=== PATIENT | female | born 1970 | race Caucasian/White ===

== ENCOUNTER 2022-12-15 10:04 | Outpatient (REF) | payer MEDICARE, BC, SELFPAY ==
[2022-12-15 19:32] LABS: Ferritin 173 ng/mL (8-252); Vitamin B12 784 pg/mL (193-986)
[2022-12-20 10:13] LABS: Insulin 44.5 uIU/mL (<29.0)
== END 2022-12-15 10:05 | disposition home or self-care (01) ==
LOC: LBN 10:04
PROVIDERS: PCP Nurse Practitioner Family; Visit Provider Surgery
DX: K75.81 Nonalcoholic steatohepatitis (NASH) (principal); E66.01 Morbid (severe) obesity due to excess calories; R73.03 Prediabetes; Z68.39 Body mass index [BMI] 39.0-39.9, adult
CPT/HCPCS: 82607; 82728; 83525

== ENCOUNTER 2022-12-15 10:13 | Outpatient (REF) | payer MEDICARE, BC, SELFPAY ==
[2022-12-15 18:45] LABS: Abs Immature Grans 0.04 10^3/uL (0.0-0.06); Absolute Basophil Count 0.04 10^3/uL (0.0-0.2); Absolute Eosinophil Count 0.13 10^3/uL (0.0-0.7); Absolute Lymphocyte Count 2.09 10^3/uL (1.2-3.4); Absolute Monocyte Count 0.56 10^3/uL (0.1-0.8); Absolute Neutrophil Count 2.94 10^3/uL (1.2-6.7); Basophils % 0.7; Eosinophils % 2.2; HCT 40.9 % (36.0-46.0); HGB 13.8 g/dL (11.2-15.7); Immature Grans % 0.7; MCH 29.6 pg (27.0-33.0); MCHC 33.7 % (32.0-36.0); MCV 88 fL (80-95); MPV 11.4 fL (8.0-11.0); Monocytes % 9.7; Neutrophils % 50.7; Platelet Count 232 10^3/uL (130-400); RBC 4.67 10^6/uL (3.93-5.22); RDW 13.2 % (11.7-14.6); RDW-SD 42.2 fL
[2022-12-15 19:05] LABS: Hemoglobin A1C 5.8 % (<5.7)
[2022-12-15 19:18] LABS: ALT 56 U/L (14-59); AST 25 U/L (15-37); Albumin 3.8 g/dL (3.4-5.0); Alkaline Phosphatase 122 U/L (46-116); Anion Gap 10.6 mmol/L (3-11); BUN 16 mg/dL (7-18); Bilirubin, Total 0.4 mg/dL (0.2-1.0); CO2 25.4 mmol/L (21.0-32.0); Calcium 9.1 mg/dL (8.5-10.1); Calculated LDL 92 mg/dL (<100); Chloride 105 mmol/L (98-107); Cholesterol 195 mg/dL (<200); Estimated GFR 67.36 (mL/min/1.73m2); Glucose 123 mg/dL (74-106); HDL Cholesterol 42 mg/dL (40-60); Potassium 4.2 mmol/L (3.5-5.1); Sodium 141 mmol/L (136-145); Triglyceride 305 mg/dL (<150)
== END 2022-12-15 10:14 | disposition home or self-care (01) ==
LOC: NCHCN 10:13
PROVIDERS: PCP Nurse Practitioner Family; Visit Provider Nurse Practitioner Family
DX: Z00.00 Encounter for general adult medical examination without abnormal findings (principal); R73.03 Prediabetes; K76.0 Fatty (change of) liver, not elsewhere classified; E55.9 Vitamin D deficiency, unspecified
CPT/HCPCS: 80053; 80061; 82306; 83036; 84443; 85025

== ENCOUNTER 2023-01-10 09:48 | Outpatient (CLI) | payer MEDICARE, BC, SELFPAY | END 2023-01-10 09:49 | disposition home or self-care (01) | PROVIDERS: PCP Nurse Practitioner Family; Visit Provider Nurse Practitioner Family | DX: R00.2 Palpitations (principal) | CPT/HCPCS: 93246 ==

== ENCOUNTER 2023-02-14 07:55 | Outpatient (CLI) | payer MEDICARE, BC, SELFPAY ==
--- NOTE | 2023-02-14 08:58 | W.CARDEVENT ---
Date of service: 02/14/23 Time of Service: 08:58 Cardiac Event Recorder Referring Provider:: Freda Owusu Indications:: Palpitations Cardiac Event Note: This is a cardiac event monitor ordered for palpitations. Patient was monitored for 10 days 22 hours Predominant rhythm was sinus with an average heart rate of 84. Minimum was 55, maximum 147 There were occasional ventricular ectopic beats There were very rare atrial premature beats A total of 4 self-limited atrial runs occurred. The longest of these was 9 beats in duration There was no atrial fibrillation, no high-grade AV block, no pauses greater than 3 seconds No patient symptoms were reported
== END 2023-02-14 07:56 | disposition home or self-care (01) ==
LOC: CARDOPNVT 07:55
PROVIDERS: PCP Nurse Practitioner Family; Visit Provider Internal Medicine Cardiovascular Disease
DX: R00.2 Palpitations (principal); I49.1 Atrial premature depolarization; I49.3 Ventricular premature depolarization
CPT/HCPCS: 93248

== ENCOUNTER → 2023-06-21 13:09 | Outpatient (CLI) | payer MEDICARE, BC, SELFPAY ==
--- NOTE | 2023-06-21 12:30 | DI.RAD_ITS ---
Exam(s) XR CHEST 2V PA LATERAL EXAM: XR CHEST 2V PA LATERAL CLINICAL HISTORY: [id number]. TECHNIQUE: 2D digital imaging was performed. COMPARISON: No exams were available for comparison FINDINGS: 2 views: Heart size is normal. The mediastinum is not widened. Lungs are clear. No infiltrates nor pleural effusions. IMPRESSION: No acute pulmonary findings. DATA REPOSITORY: RADIATION DOSE DELIVERED:
--- OUTSIDE RECORDS SUMMARY | 2023-06-21 13:10 | XMS_ITS | Continuity of Care Document ---
Author Name Unknown Organization [facility] Address [address] [place] [id number] Encounter LTTL_LA FIN NBR [id number] Date(s): 07/13/22 - 07/13/[address] [address]- Encounter Diagnosis Flank pain(Discharge Diagnosis) - 07/13/22 Discharge Disposition: Home f/u External Provider Attending Physician: Moy Haynes MD Admitting Physician: Moy Haynes MD Allergies, Adverse Reactions, Alerts Substance Reaction Severity Status prochlorperazine Unknown Active divalproex sodium Unknown Active topiramate Unknown Active ceFAZolin Unknown Active OLANZapine Unknown Active SUMAtriptan Succinate Unknown Active Functional Status 07/13/22 Family Member Travel History No recent t ravel Recent Travel History No recent travel Other exposure to Infectious Disease Non e Medications cyclobenzaprine 5 mg oral tablet 5 mg = 1 tab, Oral, TID, PRN, # 15 tab, 0 Refill(s), Pharmacy: [facility] #[id number], 160, cm, 07/13/22 10:40:00 EST, Height/Length Dosing, 99, kg, 07/13/22 10:40:00 EST, Weight Dosing Start Date: 07/13/22 Status: Ordered desvenlafaxine 0 Refill(s) Start Date: 07/13/22 Status: Ordered simvastatin 0 Refill(s) Start Date: 07/13/22 Status: Ordered Results Laboratory List Name Date CBC w/ Diff 07/13/22 Comprehensive Metabolic Panel (CMP) 07/13 Test Urine Qual 07/13/22 Urinalysis with Microscopic if Indicated 07/13/22 Automated Diff 07/13/22 Most recent to oldest [Reference Range]: 1 WBC [4.8-10.8 K/mcL] 6.3 K/mcL (07/13/22 11:00 AM) RBC [4.20-6.10 Million/mcL] 4.79 Million /mcL (07/13/22 11:00 AM) Neutro Auto [42.2-75.2 %] 56.9 % (07/13/22 11:00 AM) Lymph Auto [20.5-51.1 %] 32.9 % (07/13/22 11:00 AM) Jay Auto [1.7-9.3 %] 7.8 % (07/13/22 11:00 AM) Basophil Auto [0.0-0.8 %] 0.5 % (07/13/22 11:00 AM) BUN [8-26 mg/dL] 13 mg/dL (07/13/22 11:00 AM) UA Color [Yellow] Yellow (07/13/22:00 AM) Glucose Level [74-106 mg/dL] 122 mg/dL *HI* (07/13/22:00 AM) Potassium Level [3.5-5.1 mmol/L] 3.8 mmo l/L (07/13/22 11:00 AM) Baso Absolute [0.0-0.2 K/mcL] 0.0 K/mcL (07/13/22 11:00 AM) MCV [80.0-99.0 fL] 86.8 fL (07/13/22 11:00 AM) UA Urobilinogen [0.2] 0.2 (07/13/22 11:00 AM) UA Bili [Negative] Negative (07/13/22 11:00 AM) UA Ketones [Negative] Negative (07/13/22 11:00 AM) AST [15-41 IntlUnit/L] 27 IntlUnit/L (07/13/22 11:00 AM) ALT [14-54 IntlUnit/L] 35 IntlUnit/L (07/13/22 11:00 AM) MCHC [32.0-36.0 g/dL] 34.1 g/dL (07/13/22 11:00 AM) Osmolality [275-295 mOsm/kg] 277 mOsm/kg (07/13/22 11:00 AM) Sodium Level [134-143 mmol/L] 138 mmol/L (07/13/22 11:00 AM) UA Leuk Est [Negative] Negative (07/13/22 1100 AM) Lymph Absolute [1.2-3.4 K/mcL] 2.1 K/mcL (07/13/22 11:00 AM) UA Nitrite [Negative] Negative (07/13/22 1100 AM) UA Glucose [Negative] 100 *ABN* (07/13/2200 AM) Hct [37.0-52.0 %] 41.6 % (07/13/22:00 AM) Calcium Level [8.9-10.3 mg/dL] 9.4 mg/dL (07/13/22:00 AM) Jay Absolute [0.1-0.6 K/mcL] 0.5 K/mcL (07/13/22:00 AM) Albumin Level [3.5-5.0 g/dL] 4.3 g/dL (07/13/2200 AM) Protein Total [6.5-8.1 g/dL] 7.6 g/dL (07/13/22 11:00 AM) UA Protein [Negative] Negative (07/13/22 11:00 AM) MCH [27.0-31.0 pg] 29.6 pg (07/13/22 11:00 AM) Neutro Absolute [1.4-6.5 K/mcL] 3.6 K/mc L (07/13/22 11:00 AM) Bilirubin Total [0.2-1.2 mg/dL] 0.4 mg/d L (07/13/22 11:00 AM) Hgb [12.0-18.0 g/dL] 14.2 g/dL (07/13/22 11:00 AM) Alk Phos [38-130 IntlUnit/L] 111 IntlUni t/L (07/13/22 11:00 AM) UA Blood [Negative] Negative (07/13/22 11:00 AM) MPV [7.4-10.4 fL] 10.3 fL (07/13/22 11:00 AM) UA Spec Grav 1.015 *NA* (07/13/22 11:00 AM) Platelets [130-400 K/mcL] 224 K/mcL (07/13/22 11:00 AM) CO2 [22-32 mmol/L] 25 mmol/L (07/13/22 11:00 AM) Eos Absolute [0.0-0.2 K/mcL] 0.1 K/mcL (07/13/22 11:00 AM) UA pH 6.50 *NA* (07/13/22 11:00 AM) eGFR Non-AA 69 *NA* (07/13/22 11:00 AM) eGFR AA 69 *NA* (07/13/22 11:00 AM) UA Appear [Clear] Clear (07/13/22 11:00 AM) Chloride Level [98-111 mmol/L] 105 mmol/ L (07/13/22 11:00 AM) RDW-CV [11.5-14.5 %] 12.8 % (07/13/22 11:00 AM) A/G Ratio 1.3 *NA* (07/13/22 11:00 AM) BUN/Creat Ratio [8.0-20.0] 13.3 (07/13/22 11:00 AM) Globulin 3.3 *NA* (07/13/22 11:00 AM) Imm Gran Absolute 0.03 *NA* (07/13/22 11:00 AM) Imm Gran Auto [0.0-0.5 %] 0.5 % (07/13/22 11:00 AM) Urine Srce Clean Catch (07/13/22 11:00 AM) Creatinine Level [0.44-1.00 mg/dL] 0.98 mg/dL (07/13/22 11:00 AM) Anion Gap [3.0-12.0] 8.0 (07/13/22 11:00 AM) Eos, Auto [0.00-3.00 %] 1.40 % (07/13/22 11:00 AM) U hCG Ql [Negative] Negative (07/13/22 11:00 AM) Radiology Reports * Exam Date Time Procedure Performing Provider Status 07/13/22 11:[address] Abdomen and Pelvi s w/o Contrast Corry Jurdao; Ajit (Verified) Notes: (CT Abdomen and Pelvis w/o Contrast) Reason For Exam: left flank pain ?stone CT Abdomen and Pelvis w/o Contrast EXAM DESCRIPTION: CT Abdomen and Pelvis w/o Contrast N/A INDICATION: LEFT FLANK PAIN ?STONE TECHNIQUE: All CT scans at this facility use at least one of these dose optimization techniques: Automated exposure control; mA and/or kV adjustment per patient size (includes targeted exams where dose is matched to clinical indication); or iterative reconstruction. Technique: Axial CT images of the abdomen/pelvis without IV contrast administration COMPARISON: 12/11/2013 FINDINGS: Visualized portions of the liver, spleen, pancreas and adrenal glands demonstrate a normal unenhanced CT appearance. No calcified gallstones in the gallbladder. Small nonobstructing bilateral renal calculi. No hydronephrosis or obstructing ureteral calculus on either side Normal caliber abdominal aorta No retroperitoneal adenopathy in the abdomen or pelvis. No pelvic mass identified with apparent prior hysterectomy No bowel dilatation to suggest obstruction or ileus. No free intraperitoneal air, ascites or inflammatory changes. Normal appendix. Minimal subsegmental atelectasis or scarring in the lingula. Visualized lung bases are otherwise clear. No suspicious regional osseous lesions. IMPRESSION: No acute findings in the abdomen or pelvis No evidence of obstructing urinary tract calculus with small nonobstructing bilateral renal calculi Nonobstructive bowel pattern. No free air or inflammatory changes. JOB #: [id number] Final Signed by: Fabian Stevens MD Signed (Electronic Signature): 07/13/2022 11:28 am Vital Signs Most recent to oldest [Reference Range]: 1 Temperature Tympanic [36.6-37.9 Deg C] 3 6.8 Deg C (07/13/22 10:33 AM) Peripheral Pulse Rate [60-100 bpm] 82 bp m (07/13/22 10:33 AM) Respiratory Rate [12-24 br/min] 16 br/mi n (07/13/22 10:33 AM) Blood Pressure [90-140/60-90 mmHg] 126/7 9mmHg (07/13/22 10:33 AM) Weight Dosing 99.00 kg (07/13/22 10:40 AM) Weight Estimated 99.00 kg (07/13/22 10:33 AM) Height/Length Dosing 160.000 cm (07/13/22 10:40 AM) Height/Length Estimated 160.000 cm (07/13/22 10:33 AM) Social History Social History Type Response Tobacco Never tobacco user T obacco Use:. Sex Hospital Discharge Instructions Patient Education 07/13/2022 11:07:09 Flank Pain, Adult Flank Pain, Adult Flank pain is pain that is located on the side of the body between the upper abdomen and the spine.This area is called the flank. The pain may occur over a short period of time (acute), or it may belong-term or recurring (chronic). It may be mild or severe. Flank pain can be caused by many things, including: ??? Muscle soreness or injury. ??? Kidney infection, kidney stones, or kidney disease. ??? Stress. ??? A disease of the spine (vertebral disk disease). ??? A lung infection (pneumonia). ??? Fluid around the lungs (pulmonary edema). ??? A skin rash caused by the chickenpox virus (shingles). ??? Tumors that affect the back of the abdomen. ??? Gallbladder disease. Follow these instructions at home: ??? Drink enough fluid to keep your urine pale yellow. ??? Rest as told by your health care provider. ??? Take [id number] and prescription medicines only as told by your health care provider. ??? Keep a journal to track what has caused your flank pain and what has made it feel better. ??? Keep all follow-up visits. This is important. Contact a health care provider if: ??? Your pain is not controlled with medicine. ??? You have new symptoms. ??? Your pain gets worse. ??? Your symptoms last longer than 2???3 days. ??? You have trouble urinating or you are urinating very frequently. Get help right away if: ??? You have trouble breathing or you are short of breath. ??? Your abdomen hurts or it is swollen or red. ??? You have nausea or vomiting. ??? You feel faint, or you faint. ??? You have blood in your urine. ??? You have flank pain and a fever. These symptoms may represent a serious problem that is an emergency. Do not wait to see if the symptoms will go away. Get medical help right away. Call your local emergency services (911 in the [place] Do not drive yourself to the hospital. Summary ??? Flank pain is pain that is located on the side of the body between the upper abdomen and the spine. ??? The pain may occur over a short period of time (acute), or it may be long- term or recurring (chronic). It may be mild or severe. ??? Flank pain can be caused by many things. ??? Contact your health care provider if your symptoms get worse or last longer than 2???3 days. This information is not intended to replace advice given to you by your health care provider. Make sure you discuss any questions you have with your health care provider. Document Revised: 08/31/2021 Document Reviewed: 08/31/2021 Elsevier Patient Education ?? 2021 [employer] Follow Up Care 07/13/2022 10:32:59 With:Follow up with primary care provider Address: When:1 to 2 weeks Discharge instructions * Event Display: Discharge Instructions Physician Emergency department Note * SUZY Laird: PERFORM Event Display: ED Note Physician Authored Date: [id number] SCOTTIE DUDLEY :1970 Age:51 years Sex:Female Visit Date:07/13/2022 Basic Information Time Seen: SUZY Laird / 07/13/2022 10:38 Chief Complaint patient presents with report of x1 week of left sided flank pain that is unresolved. reports 3-4 days of some blood in her urine. reports mild nausea. History Of Present Illness: Patient is a 51-year-old female presenting to the emergency department for left flank pain.?? For the last week has had left pain.?? Reports intermittent nausea.?? No vomiting.?? Reports hematuria.??No dysuria or urinary frequency or urgency.?? History of kidney stone many years ago, states that this feels similar.?? She did have to have lithotripsy to remove her last stone.?? She denies any fevers or chills.?? No constipation or diarrhea.?? No respiratory symptoms. Review of Systems: Constitutional:?No??fevers,?No??chills,?No??sweats Respiratory:?No??shortness of breath,?No??cough Cardiovascular:?No??Chest pain,?No??palpitations,?No??syncope Gastrointestinal:?Positive fornausea,?No??vomiting,?No??diarrhea,??PositiveAbdominal pain Genitourinary:?Positive for??hematuria Musculoskeletal:??No??back pain,??No??neck pain,??No??joint pain Integumentary:?No??rash Physical Exam Vitals & Measurements T:??36.8?C ??(Tympanic)?? HR:??82??(Peripheral)?? RR:??16?? BP:??126/79?? SpO2:??98%?? HT:??160.000??cm?? WT:??99.00??kg??(Estimated)?? Pain Score:??6?? O2 Therapy:??Room air?? GENERAL: Awake and alert. No acute distress ?? CARDIOVASCULAR: Regular rate and rhythm, no murmur no rub ?? LUNGS: No respiratory distress. Chest nontender. Normal breath sounds. No wheezing or crackles ?? ABDOMEN: Abdomen soft?? nondistended active bowel sounds. left flank tenderness ?? EXTREMITIES: ?? Nontender. normal range of motion. ?? NEUROLOGIC: Alert and oriented x4. ?? SKIN: Color normal. ??Warm dry intact. No Rash Procedure No Qualifying Data Assessment/Plan 1.??Flank pain??R10.9 No evidence of stone or infection on labs or CT. ??Possible passed stone versus??musculoskeletal??origin of pain. ??Was given Toradol and Zofran with minimal relief.?? She did drive herself to the emergency department. ??I will discharge her home with a prescription??for Flexeril to take to see if this provides better pain relief. ??Otherwise instructed to continue [id number] medications follow-up with primary care provider??if not better return to ER if any worsening or changes. ??She states understanding and agrees with above plan. Ordered: cyclobenzaprine 5 mg oral tablet, 5 mg = 1 tab, Oral, TID, PRN, # 15 tab, 0 Refill(s), Pharmacy: [facility] #[id number], 160, cm, 07/13/22 10:40:00 EST, Height/Length Dosing, 99, kg, 07/13/22 10:40:00 EST, Weight Dosing ?? Patient Education Flank Pain, Adult Follow Up With When Contact Information Follow up with primary care provider Within 1 to 2 weeks Additional Instructions: Medication Reconciliation New Prescription cyclobenzaprine (cyclobenzaprine 5 mg oral tablet)1 tab Oral (given by mouth) 3 times a day. PRN. Refills: 0. ?? Unchanged desvenlafaxine ?? simvastatin ?? Discontinued aspirin (aspirin 81 mg oral capsule)1 Capsules Oral (given by mouth) every day. do not exceed 48 capsules in 24 hours. Problem List/Past Medical History Ongoing No qualifying data Historical No qualifying data Medication Administration Given !-Zofran, 4 mg, IV Push Toradol, 30 mg, IV Allergies OLANZapine SUMAtriptan Succinate ceFAZolin divalproex sodium prochlorperazine topiramate Social History Alcohol Never Electronic Cigarette/Vaping Electronic Cigarette Use: Never. Substance Use Marijuana, 1-2 times per month Tobacco Never tobacco user Tobacco Use:. Diagnostic Results CT Abdomen and Pelvis w/o Contrast 07/13/2022 11:[address] Abdomen and Pelvis w/o Contrast ?? 07/13/22 11:28:23 EXAM DESCRIPTION: CT Abdomen and Pelvis w/o Contrast ?? N/A ?? INDICATION: LEFT FLANK PAIN ?STONE ?? TECHNIQUE: All CT scans at this facility use at least one of these dose optimization techniques: Automated exposure control; mA and/or kV adjustment per patient size (includes targeted exams where dose is matched to clinical indication); or iterative reconstruction. ?? Technique: Axial CT images of the abdomen/pelvis without IV contrast administration ?? COMPARISON: 12/11/2013 ?? FINDINGS: Visualized portions of the liver, spleen, pancreas and adrenal glands demonstrate a normal unenhanced CT appearance. ?? No calcified gallstones in the gallbladder. ?? Small nonobstructing bilateral renal calculi. No hydronephrosis or obstructing ureteral calculus on either side ?? Normal caliber abdominal aorta ?? No retroperitoneal adenopathy in the abdomen or pelvis. No pelvic mass identified with apparent prior hysterectomy ?? No bowel dilatation to suggest obstruction or ileus. No free intraperitoneal air, ascites or inflammatory changes. Normal appendix. ?? Minimal subsegmental atelectasis or scarring in the lingula. Visualized lung bases are otherwise clear. ?? No suspicious regional osseous lesions. ?? IMPRESSION: No acute findings in the abdomen or pelvis ?? No evidence of obstructing urinary tract calculus with small nonobstructing bilateral renal calculi ?? Nonobstructive bowel pattern. No free air or inflammatory changes. ? JOB #: [id number] Electronically Signed By: ?? Signed By: Fabian Stevens MD Lab Results CBC and Differential?? LATEST RESULTS?? WBC?? 07/13/22 11:00?? 6.3?? RBC?? 07/13/22 11:00?? 4.79?? Hgb?? 07/13/22 11:00?? 14.2?? Hct?? 07/13/22 11:00?? 41.6?? MCV?? 07/13/22 11:00?? 86.8?? MCH?? 07/13/22 11:00?? 29.6?? MCHC?? 07/13/22 11:00?? 34.1?? RDW-CV?? 07/13/22 11:00?? 12.8?? Platelets?? 07/13/22 11:00?? 224?? MPV?? 07/13/22 11:00?? 10.3?? Neutro Auto?? 07/13/22 11:00?? 56.9?? Lymph Auto?? 07/13/22 11:00?? 32.9?? Jay Auto?? 07/13/22 11:00?? 7.8?? Eos, Auto?? 07/13/22 11:00?? 1.40?? Basophil Auto?? 07/13/22 11:00?? 0.5?? Imm Gran Auto?? 07/13/22 11:00?? 0.5?? Neutro Absolute?? 07/13/22 11:00?? 3.6?? Lymph Absolute?? 07/13/22 11:00?? 2.1?? Jay Absolute?? 07/13/22 11:00?? 0.5?? Eos Absolute?? 07/13/22 11:00?? 0.1?? Baso Absolute?? 07/13/22 11:00?? 0.0?? Imm Gran Absolute?? 07/13/22 11:00?? 0.03? Routine Chemistry?? LATEST RESULTS?? Sodium Level?? 07/13/22 11:00?? 138?? Potassium Level?? 07/13/22 11:00?? 3.8?? Chloride Level?? 07/13/22 11:00?? 105?? CO2?? 07/13/22 11:00?? 25?? Alk Phos?? 07/13/22 11:00?? 111?? AST?? 07/13/22 11:00?? 27?? ALT?? 07/13/22 11:00?? 35?? BUN?? 07/13/22 11:00?? 13?? Glucose Level?? 07/13/22 11:00?? 122 ??High?? Creatinine Level?? 07/13/22 11:00?? 0.98?? BUN/Creat Ratio?? 07/13/22 11:00?? 13.3?? eGFR AA?? 07/13/22 11:00?? 69?? eGFR Non-AA?? 07/13/22 11:00?? 69?? Calcium Level?? 07/13/22 11:00?? 9.4?? Protein Total?? 07/13/22 11:00?? 7.6?? Albumin Level?? 07/13/22 11:00?? 4.3?? Globulin?? 07/13/22 11:00?? 3.3?? A/G Ratio?? 07/13/22 11:00?? 1.3?? Bilirubin Total?? 07/13/22 11:00?? 0.4?? Anion Gap?? 07/13/22 11:00?? 8.0?? Osmolality?? 07/13/22 11:00?? 277? Testing?? LATEST RESULTS?? U hCG Ql?? 07/13/22 11:00?? Negative? UA Macroscopic?? LATEST RESULTS?? Urine Srce?? 07/13/22 11:00?? Clean Catch?? UA Color?? 07/13/22 11:00?? Yellow?? UA Appear?? 07/13/22 11:00?? Clear?? UA Glucose?? 07/13/22 11:00?? 100 Abnormal?? UA Bili?? 07/13/22 11:00?? Negative?? UA Ketones?? 07/13/22 11:00?? Negative?? UA Spec Grav?? 07/13/22 11:00?? 1.015?? UA Blood?? 07/13/22 11:00?? Negative?? UA pH?? 07/13/22 11:00?? 6.50?? UA Protein?? 07/13/22 11:00?? Negative?? UA Urobilinogen?? 07/13/22 11:00?? 0.2?? UA Nitrite?? 07/13/22 11:00?? Negative?? UA Leuk Est?? 07/13/22 11:00?? Negative? Electronically Signed on 07/13/22 12:36 PM SUZY Laird Emergency department Discharge instructions * SUZY Laird: PERFORM Event Display: ED Discharge Information Authored Date: [id number] SCOTTIE DUDLEY :1970 Age:51 years Sex:Female Visit Date:07/13/2022 Discharge Instructions We would like to thank you for allowing us to assist you with your healthcare needs. The following includes patient education materials and information regarding your injury/illness. Diagnosis from Today's Visit Flank pain Discharge Vitals Temperature??(Tympanic) 98.2 ??F (36.8 ??C) Heart Rate??(Peripheral) 82 Respiratory Rate?? 16 Blood Pressure?? 126/79?? Height?? 62.99 in (160.000 cm) Weight??(Estimated) 218.30 lb (99.00 kg) Allergies OLANZapine SUMAtriptan Succinate ceFAZolin divalproex sodium prochlorperazine topiramate What to Do Next You Need to Schedule the Following Appointments Follow Up with??Follow up with primary care provider When:??Within 1 to 2 weeks You were treated today on an emergency basis; it may be house to contact your primary care provider to notify them of your visit today. You may have been referred to your regular doctor or a specialist, please follow up as instructed. If your condition worsens or you can't get in to see the doctor, contact the Emergency Department. Medications What How Much When Why Instructions Next Dose New cyclobenzaprine (cyclobenzaprine 5 mg oral tablet) 1 tab Oral (given by mouth) 3 times a day Flank pain PRN ?? Pickup at [facility] #[id number] Unchanged desvenlafaxine Unchanged simvastatin Pharmacy Information [facility] #[id number]: [address] [place] [phone] ?? What How Much When Comments Stop Taking aspirin (aspirin 81 mg oral capsule) 1 Capsules Oral (given by mouth) Every day do not exceed 48 capsules in 24 hours ?? Education Materials Flank Pain, Adult Flank pain is pain that is located on the side of the body between the upper abdomen and the spine.This area is called the flank. The pain may occur over a short period of time (acute), or it may belong-term or recurring (chronic). It may be mild or severe. Flank pain can be caused by many things, including: ? Muscle soreness or injury. ? Kidney infection, kidney stones, or kidney disease. ? Stress. ? A disease of the spine (vertebral disk disease). ? A lung infection (pneumonia). ? Fluid around the lungs (pulmonary edema). ? A skin rash caused by the chickenpox virus (shingles). ? Tumors that affect the back of the abdomen. ? Gallbladder disease. Follow these instructions at home: ? Drink enough fluid to keep your urine pale yellow. ? Rest as told by your health care provider. ? Take [id number] and prescription medicines only as told by your health care provider. ? Keep a journal to track what has caused your flank pain and what has made it feel better. ? Keep all follow-up visits. This is important. Contact a health care provider if: ? Your pain is not controlled with medicine. ? You have new symptoms. ? Your pain gets worse. ? Your symptoms last longer than 2???3 days. ? You have trouble urinating or you are urinating very frequently. Get help right away if: ? You have trouble breathing or you are short of breath. ? Your abdomen hurts or it is swollen or red. ? You have nausea or vomiting. ? You feel faint, or you faint. ? You have blood in your urine. ? You have flank pain and a fever. These symptoms may represent a serious problem that is an emergency. Do not wait to see if the symptoms will go away. Get medical help right away. Call your local emergency services (911 in the [place] Do not drive yourself to the hospital. Summary ? Flank pain is pain that is located on the side of the body between the upper abdomen and the spine. ? The pain may occur over a short period of time (acute), or it may be long-term or recurring (chronic). It may be mild or severe. ? Flank pain can be caused by many things. ? Contact your health care provider if your symptoms get worse or last longer than 2???3 days. This information is not intended to replace advice given to you by your health care provider. Make sure you discuss any questions you have with your health care provider. Document Revised: 08/31/2021 Document Reviewed: 08/31/2021 Elsevier Patient Education ?? 2021 [employer] Tests Performed Radiology CT Abdomen and Pelvis w/o Contrast 07/13/2022 11:30 EST Medications and Immunizations Administered Given !-Zofran, 4 mg, IV Push Toradol, 30 mg, IV Lab Test Name Test Result Date/Time WBC 6.3 K/mcL 07/13/2022 11:00 EST RBC 4.79 Million/mcL 07/13/2022 11:00 EST Hgb 14.2 g/dL 07/13/2022 11:00 EST Hct 41.6 % 07/13/2022 11:00 EST MCV 86.8 fL 07/13/2022 11:00 EST MCH 29.6 pg 07/13/2022 11:00 EST MCHC 34.1 g/dL 07/13/2022 11:00 EST RDW-CV 12.8 % 07/13/2022 11:00 EST Platelets 224 K/mcL 07/13/2022 11:00 EST MPV 10.3 fL 07/13/2022 11:00 EST Neutro Auto 56.9 % 07/13/2022 11:00 EST Lymph Auto 32.9 % 07/13/2022 11:00 EST Jay Auto 7.8 % 07/13/2022 11:00 EST Eos, Auto 1.40 % 07/13/2022 11:00 EST Basophil Auto 0.5 % 07/13/2022 11:00 EST Imm Gran Auto 0.5 % 07/13/2022 11:00 EST Neutro Absolute 3.6 K/mcL 07/13/2022 11:00 EST Lymph Absolute 2.1 K/mcL 07/13/2022 11:00 EST Jay Absolute 0.5 K/mcL 07/13/2022 11:00 EST Eos Absolute 0.1 K/mcL 07/13/2022 11:00 EST Baso Absolute 0.0 K/mcL 07/13/2022 11:00 EST Imm Gran Absolute 0.03 07/13/2022 11:00 EST Sodium Level 138 mmol/L 07/13/2022 11:00 EST Potassium Level 3.8 mmol/L 07/13/2022 11:00 EST Chloride Level 105 mmol/L 07/13/2022 11:00 EST CO2 25 mmol/L 07/13/2022 11:00 EST Alk Phos 111 IntlUnit/L 07/13/2022 11:00 EST AST 27 IntlUnit/L 07/13/2022 11:00 EST ALT 35 IntlUnit/L 07/13/2022 11:00 EST BUN 13 mg/dL 07/13/2022 11:00 EST Glucose Level 122 mg/dL 07/13/2022 11:00 EST Creatinine Level 0.98 mg/dL 07/13/2022 11:00 EST BUN/Creat Ratio 13.3 07/13/2022 11:00 EST eGFR AA 69 07/13/2022 11:00 EST eGFR Non-AA 69 07/13/2022 11:00 EST Calcium Level 9.4 mg/dL 07/13/2022 11:00 EST Protein Total 7.6 g/dL 07/13/2022 11:00 EST Albumin Level 4.3 g/dL 07/13/2022 11:00 EST Globulin 3.3 07/13/2022 11:00 EST A/G Ratio 1.3 07/13/2022 11:00 EST Bilirubin Total 0.4 mg/dL 07/13/2022 11:00 EST Anion Gap 8.0 07/13/2022 11:00 EST Osmolality 277 mOsm/kg 07/13/2022 11:00 EST U hCG Ql Negative 07/13/2022 11:00 EST Urine Srce Clean Catch 07/13/2022 11:00 EST UA Color YELLOW. 07/13/2022 11:00 EST UA Appear CLEAR. 07/13/2022 11:00 EST UA Glucose 100 07/13/2022 11:00 EST UA Bili NEGATIVE 07/13/2022 11:00 EST UA Ketones NEGATIVE 07/13/2022 11:00 EST UA Spec Grav 1.015 07/13/2022 11:00 EST UA Blood NEGATIVE 07/13/2022 11:00 EST UA pH 6.50 07/13/2022 11:00 EST UA Protein NEGATIVE 07/13/2022 11:00 EST UA Urobilinogen 0.2 07/13/2022 11:00 EST UA Nitrite NEGATIVE 07/13/2022 11:00 EST UA Leuk Est NEGATIVE 07/13/2022 11:00 EST Patient/Key Account Manager Signature Patient Name:SCOTTIE DUDLEY I have received this information and my questions have been answered. Patient/Key Account Manager Name: Patient/Key Account Manager Signature: Relationship to Patient: Witness Name/Signature: Date: Electronically Signed on: 07/13/2022 12:09 ESTSigned by:AL CT Abdomen and Pelvis WO contrast * Fabian Stevens MD: VERIFY, VERIFY Event Display: Report EXAM DESCRIPTION: CT Abdomen and Pelvis w/o Contrast N/A INDICATION: LEFT FLANK PAIN ?STONE TECHNIQUE: All CT scans at this facility use at least one of these dose optimization techniques: Automated exposure control; mA and/or kV adjustment per patient size (includes targeted exams where dose is matched to clinical indication); or iterative reconstruction. Technique: Axial CT images of the abdomen/pelvis without IV contrast administration COMPARISON: 12/11/2013 FINDINGS: Visualized portions of the liver, spleen, pancreas and adrenal glands demonstrate a normal unenhanced CT appearance. No calcified gallstones in the gallbladder. Small nonobstructing bilateral renal calculi. No hydronephrosis or obstructing ureteral calculus on either side Normal caliber abdominal aorta No retroperitoneal adenopathy in the abdomen or pelvis. No pelvic mass identified with apparent prior hysterectomy No bowel dilatation to suggest obstruction or ileus. No free intraperitoneal air, ascites or inflammatory changes. Normal appendix. Minimal subsegmental atelectasis or scarring in the lingula. Visualized lung bases are otherwise clear. No suspicious regional osseous lesions. IMPRESSION: No acute findings in the abdomen or pelvis No evidence of obstructing urinary tract calculus with small nonobstructing bilateral renal calculi Nonobstructive bowel pattern. No free air or inflammatory changes. JOB #: [id number] Final Signed by: Fabian Stevens MD Signed (Electronic Signature): 07/13/2022 11:28 am
--- OUTSIDE RECORDS SUMMARY | 2023-06-21 13:10 | XMS_ITS | Continuity of Care Document ---
Author Name Unknown Organization [facility] Address [address] [place] [id number] Care Team Providers Care Director Of Student Affairs Name Role Phone MANUEL PERRY Primary Care Physic dina Encounter LTTL_ID FIN NBR [id number] Date(s): 12/27/22 - 12/27/[address] [phone] [place] Encounter Diagnosis Encounter for screening mammogram for malignant neoplasm of breast(Final) - Other abnormal and inconclusive findings on diagnostic imaging of breast(Final) - Discharge Disposition: Home or Self Care Attending Physician: MANUEL PERRY Admitting Physician: MANUEL PERRY Referring Physician: MANUEL PERRY Allergies, Adverse Reactions, Alerts Substance Reaction Severity Status prochlorperazine Unknown Active divalproex sodium Unknown Active topiramate Unknown Active ceFAZolin Unknown Active OLANZapine Unknown Active SUMAtriptan Succinate Unknown Active Medications cyclobenzaprine 5 mg oral tablet 5 mg = 1 tab, Oral, TID, PRN, # 15 tab, 0 Refill(s), Pharmacy: [facility] #[id number], 160, cm, 07/13/22 10:40:00 EST, Height/Length Dosing, 99, kg, 07/13/22 10:40:00 EST, Weight Dosing Start Date: 07/13/22 Status: Ordered desvenlafaxine 0 Refill(s) Start Date: 07/13/22 Status: Ordered simvastatin 0 Refill(s) Start Date: 07/13/22 Status: Ordered Results Radiology Reports * Exam Date Time Procedure Performing Provider Status 12/27/22 9:56 AM MG Mammo Screening Bilateral DomainUse r, Generated; Auth (Verified) Notes: (MG Mammo Screening Bilateral) Reason For Exam: SCREENING MG Mammo Screening Bilateral EXAM DESCRIPTION: MG Mammo Screening Bilateral 12/27/2022 INDICATION: SCREENING RISK FACTOR: The patient may be at increased breast cancer risk based on 1 or more risk factors COMPARISON: Prior studies most recently dated 06/23/2021 and 04/24/2020 BREAST DENSITY: There are scattered areas of fibroglandular density. FINDINGS: MLO and CC views were performed with digital breast tomosynthesis. Images were reviewed using computer aided detection. No asymmetry, architectural distortion or suspicious grouping of calcifications to suggest malignancy in either breast. Small smoothly marginated focal asymmetries bilaterally which were seen previously consistent with benign etiology. ASSESSMENT: No mammographic evidence of malignancy. Benign findings. BI-RADS category 2. RECOMMENDATION: Screening mammography in 1 year JOB #: [id number] Final Signed by: Fabian Stevens MD Signed (Electronic Signature): 12/27/2022 10:17 am Social History Social History Type Response Tobacco Never tobacco user T obacco Use:. Sex Patient Care team information Care Team Personnel Name: MANUEL PERRY Position: No Access Member Role: Primary Care Physician Address: Address: [address] [place] [address] [place] [id number]- Care Team Related Persons Name: SOTO DUDLEY
== END ==
PROVIDERS: PCP Nurse Practitioner Family; Visit Provider Nurse Practitioner Family
DX: R05.9 Cough, unspecified (principal)
CPT/HCPCS: 71046

== ENCOUNTER 2023-12-12 13:23 | Outpatient (REF) | payer MEDICARE, SELFPAY ==
[2023-12-12 16:16] LABS: Abs Immature Grans 0.02 10^3/uL (0.0-0.06); Absolute Basophil Count 0.04 10^3/uL (0.0-0.2); Absolute Eosinophil Count 0.08 10^3/uL (0.0-0.7); Absolute Lymphocyte Count 1.55 10^3/uL (1.2-3.4); Absolute Neutrophil Count 4.93 10^3/uL (1.2-6.7); Basophils % 0.6 %; Eosinophils % 1.1 %; HCT 42.1 % (36.0-46.0); HGB 14.2 g/dL (11.2-15.7); Immature Grans % 0.3 %; Lymphocytes % 21.8 %; MCHC 33.7 % (32.0-36.0); MCV 89 fL (80-95); MPV 11.3 fL (8.0-11.0); Neutrophils % 69.2 %; Platelet Count 207 10^3/uL (130-400); RBC 4.73 10^6/uL (3.93-5.22); RDW 12.9 % (11.7-14.6); WBC 7.12 10^3/uL (4.4-10.8)
[2023-12-12 16:26] LABS: INR 0.9 (0.9-1.1); Prothrombin Time 8.9 sec (9.1-11.1)
[2023-12-12 16:34] LABS: ALT 49 U/L (14-59); AST 26 U/L (15-37); Albumin 3.8 g/dL (3.4-5.0); Alkaline Phosphatase 144 U/L (46-116); Anion Gap 8.8 mmol/L (3-11); BUN 12 mg/dL (7-18); Bilirubin, Total 0.4 mg/dL (0.2-1.0); CO2 27.2 mmol/L (21.0-32.0); CREATININE 1.3 mg/dL (0.55-1.02); Calcium 9.2 mg/dL (8.5-10.1); Chloride 106 mmol/L (98-107); Estimated GFR 48.87 (mL/min/1.73m2); Glucose 141 mg/dL (74-106); Potassium 4.6 mmol/L (3.5-5.1); Sodium 142 mmol/L (136-145); Total Protein 7.1 g/dL (6.4-8.2)
[2023-12-12 16:57] LABS: Hemoglobin A1C 5.8 % (<5.7)
[2023-12-12 23:01] LABS: Hepatitis C Ab w Rflx HCV PCR Negative (Negative)
== END 2023-12-12 13:24 | disposition home or self-care (01) ==
LOC: NCHCN 13:23
PROVIDERS: PCP Nurse Practitioner Family; Visit Provider Nurse Practitioner Family
DX: R73.03 Prediabetes (principal); K76.0 Fatty (change of) liver, not elsewhere classified
CPT/HCPCS: 80053; 86803; 83036; 85025; 85610

== ENCOUNTER 2024-05-09 08:31 | Outpatient (REF) | payer MEDICARE, SELFPAY ==
[2024-05-09 15:45] LABS: Abs Immature Grans 0.02 10^3/uL (0.0-0.06); Absolute Basophil Count 0.04 10^3/uL (0.0-0.2); Absolute Lymphocyte Count 1.77 10^3/uL (1.2-3.4); Absolute Monocyte Count 0.56 10^3/uL (0.1-0.8); Absolute Neutrophil Count 3.41 10^3/uL (1.2-6.7); Basophils % 0.7 %; Eosinophils % 1.7 %; HCT 41.8 % (36.0-46.0); HGB 14.4 g/dL (11.2-15.7); Immature Grans % 0.3 %; MCH 30.2 pg (27.0-33.0); MCHC 34.4 % (32.0-36.0); MCV 88 fL (80-95); MPV 11.3 fL (8.0-11.0); Monocytes % 9.5 %; Neutrophils % 57.8 %; Platelet Count 224 10^3/uL (130-400); RBC 4.77 10^6/uL (3.93-5.22); RDW 12.8 % (11.7-14.6); RDW-SD 40.8 fL
[2024-05-09 16:21] LABS: Prothrombin Time 10.1 sec (9.1-11.1)
[2024-05-09 16:38] LABS: Hemoglobin A1C 5.8 % (<5.7)
[2024-05-09 16:42] LABS: ALT 62 U/L (14-59); AST 33 U/L (15-37); Albumin 3.8 g/dL (3.4-5.0); Alkaline Phosphatase 140 U/L (46-116); Anion Gap 9.9 mmol/L (3-11); BUN 11 mg/dL (7-18); Bilirubin, Total 0.73 mg/dL (0.2-1.0); CO2 27.1 mmol/L (21.0-32.0); CREATININE 1.2 mg/dL (0.55-1.02); Calcium 9.5 mg/dL (8.5-10.1); Calculated LDL 93 mg/dL (<100); Chloride 105 mmol/L (98-107); Cholesterol 187 mg/dL (<200); Estimated GFR 53.46 (mL/min/1.73m2); Glucose 111 mg/dL (74-106); HDL Cholesterol 53 mg/dL (40-60); Potassium 3.9 mmol/L (3.5-5.1); Sodium 142 mmol/L (136-145); Total Protein 7.2 g/dL (6.4-8.2); Triglyceride 205 mg/dL (<150)
== END 2024-05-09 08:32 | disposition home or self-care (01) ==
LOC: NCHCN 08:31
PROVIDERS: PCP Nurse Practitioner Family; Visit Provider Nurse Practitioner Family
DX: K76.0 Fatty (change of) liver, not elsewhere classified (principal); R73.03 Prediabetes
CPT/HCPCS: 80053; 80061; 83036; 85025; 85610

== ENCOUNTER 2025-04-29 09:46 | Outpatient (REF) | payer MEDICARE, SELFPAY ==
[2025-04-29 15:27] LABS: HCT 41.1 % (36.0-46.0); HGB 13.8 g/dL (11.2-15.7); MCH 29.7 pg (27.0-33.0); MCHC 33.6 % (32.0-36.0); MCV 89 fL (80-95); MPV 10.8 fL (8.0-11.0); Platelet Count 222 10^3/uL (130-400); RBC 4.64 10^6/uL (3.93-5.22); RDW 13.2 % (11.7-14.6); RDW-SD 42.7 fL; WBC 6.50 10^3/uL (4.4-10.8)
[2025-04-29 15:50] LABS: Hemoglobin A1C 6.1 % (<5.7)
[2025-04-29 16:39] LABS: ALT 70 U/L (14-59); AST 42 U/L (15-37); Albumin 3.7 g/dL (3.4-5.0); Alkaline Phosphatase 134 U/L (46-116); Anion Gap 8.1 mmol/L (3-11); BUN 13 mg/dL (7-18); Bilirubin, Total 0.6 mg/dL (0.2-1.0); CO2 27.9 mmol/L (21.0-32.0); Calcium 9.4 mg/dL (8.5-10.1); Chloride 103 mmol/L (98-107); Cholesterol 206 mg/dL (<200); Glucose 139 mg/dL (74-106); HDL Cholesterol 51 mg/dL (>or=50); Potassium 4.4 mmol/L (3.5-5.1); Sodium 139 mmol/L (136-145); Total Protein 7.5 g/dL (6.4-8.2)
== END 2025-04-29 09:47 | disposition home or self-care (01) ==
LOC: NCHCN 09:46
PROVIDERS: Visit Provider Nurse Practitioner Family
DX: K76.0 Fatty (change of) liver, not elsewhere classified (principal); R73.03 Prediabetes; E78.5 Hyperlipidemia, unspecified
CPT/HCPCS: 80053; 80061; 85027; 83036

== ENCOUNTER 2025-06-12 15:54 | Outpatient (CLI) | payer MEDICARE, SELFPAY ==
--- NOTE | 2025-06-12 14:00 | DI.RAD_ITS ---
Exam(s) XR WRIST LT COMPLETE EXAM: XR WRIST LT COMPLETE CLINICAL HISTORY: lef thumb pain. TECHNIQUE: 2D digital imaging was performed. Three views. COMPARISON: CR XR WRIST RT COMPLETE from 06/12/2025 FINDINGS: BONES: No acute fracture is present. No bony destructive lesion is seen. JOINTS: The carpal bones are normally aligned. There are mild degenerative changes of the 1st carpal metacarpal joint. SOFT TISSUE: Normal. IMPRESSION: Mild degenerative changes of the 1st carpal metacarpal joint. DATA REPOSITORY: RADIATION DOSE DELIVERED:
--- NOTE | 2025-06-12 14:00 | DI.RAD_ITS ---
Exam(s) XR WRIST RT COMPLETE EXAM: XR WRIST RT COMPLETE CLINICAL HISTORY: right thumb pain. TECHNIQUE: 2D digital imaging was performed. Three views. COMPARISON: No exams were available for comparison FINDINGS: BONES: No acute fracture is present. No bony destructive lesion is seen. JOINTS: The carpal bones are normally aligned. There are minimal degenerative changes of the 1st carpal metacarpal joint. There is mild periarticular spurring. The joint space is maintained. SOFT TISSUE: Normal. IMPRESSION: Minimal degenerative changes at the 1st CMC joint. DATA REPOSITORY: RADIATION DOSE DELIVERED:
== END 2025-06-12 15:55 | disposition home or self-care (01) ==
LOC: DIORS 15:54
PROVIDERS: Visit Provider Physician Assistant
DX: M79.645 Pain in left finger(s) (principal); M79.644 Pain in right finger(s)
CPT/HCPCS: 99203; 73110